=== PATIENT | male | born 1995 | race Two or more races ===

== ENCOUNTER 2019-03-20 15:51 | Emergency (ER) | payer BC, MEDICAID, OTHER ==
[~2019-03-20] VITALS: Ht 170.2 cm; Wt 89.0 kg
[2019-03-20 16:09] VITALS: BP 124/84
[2019-03-20] MEDS ORDERED: acetaminophen 325mg tablet PO ONE (17:10)
[2019-03-20] MEDS ORDERED: AMOX-422 PO (17:31)
[2019-03-20] MEDS ORDERED: IBUP-1984 PO (17:31)
== END 2019-03-20 17:46 | disposition home or self-care (01) ==
LOC: ER 15:52
DX: J02.9 Acute pharyngitis, unspecified (principal); H66.92 Otitis media, unspecified, left ear; F17.200 Nicotine dependence, unspecified, uncomplicated; F12.90 Cannabis use, unspecified, uncomplicated; Z79.899 Other long term (current) drug therapy
CPT/HCPCS: 87081; 87880; 99283